=== PATIENT | male | born 1930 | race Caucasian/White ===

== ENCOUNTER 2017-09-03 07:30 | Inpatient (IN) | payer MEDICARE ==
[~2017-09-03] VITALS: Ht 180.3 cm; Wt 96.6 kg
[2017-09-12 09:56] VITALS: BP 131/81
[2017-09-12 10:16] LABS: BASOPHILS % (AUTO) 0.8 % (0.0-5.0); EOSINOPHILS % (AUTO) 3.7 % (0.0-8.0); HEMATOCRIT 40.2 % (42-54); LYMPHOCYTES % (AUTO) 17.8 % (21.0-51.0); MEAN CORPUSCULAR HEMOGLOBIN 29.6 pg (27.0-33.0); MEAN CORPUSCULAR HGB CONC 32.9 g/dL (32.0-36.0); MONOCYTES % (AUTO) 9.3 % (3.0-13.0); NEUTROPHILS % (AUTO) 68.4 % (40.0-77.0); PLATELET COUNT (AUTO) 213 K/uL (130-400); RED BLOOD CELL COUNT(AUTO) 4.47 MIL/uL (4.50-6.20); RED CELL DISTRIBUTION WIDTH 15.2 % (11.0-15.5); WHITE BLOOD COUNT (AUTO) 8.7 K/uL (4.8-10.8)
[2017-09-12 10:28] LABS: CREATININE 1.5 mg/dL (0.5-1.5); POTASSIUM 4.2 mmol/L (3.5-5.1)
[2017-09-12] MEDS ORDERED: FURO20TA4 PO (12:24)
[2017-09-12] MEDS ORDERED: CHOL200013 PO (12:24)
[2017-09-12] MEDS ORDERED: ATOR40TA71 PO (12:24)
[2017-09-12] MEDS ORDERED: ALBU2.5V2 IH (12:24)
[2017-09-12] MEDS ORDERED: METO50TA18 PO (12:24)
[2017-09-12] MEDS ORDERED: CYANOCOBALAMIN PO (12:24)
[2017-09-12] MEDS ORDERED: SPIR25TA6 PO (12:24)
[2017-09-12] MEDS ORDERED: PSYL3.4P5 PO (12:24)
[2017-09-12] MEDS ORDERED: MV-M1TAB39 PO (12:24)
[2017-09-12] MEDS ORDERED: PANT40TA25 PO (12:24)
[2017-09-12] MEDS ORDERED: BISA10SU8 RC (12:24)
[2017-09-12] MEDS ORDERED: MOM30 PO (12:24)
[2017-09-12] MEDS ORDERED: ENAL10TA PO (12:24)
[2017-09-12] MEDS ORDERED: TRAM50TA4 PO (12:24)
[2017-09-12] MEDS ORDERED: ARTIFICIAL TEAR OU (12:24)
[2017-09-12] MEDS ORDERED: OMEG-148 PO (12:24)
[2017-09-12] MEDS ORDERED: DIGO250T84 PO (12:24)
[2017-09-12] MEDS ORDERED: XALA2.5OS OU (12:24)
[2017-09-12] MEDS ORDERED: TRAZ-185 PO (12:24)
[2017-09-12] MEDS ORDERED: SERT25TA PO (12:24)
[2017-09-12] MEDS ORDERED: ONDA4TAB4 PO (12:24)
[2017-09-12] MEDS ORDERED: AEC81 PO (12:24)
[2017-09-16] VITALS (28 sets, daily range): BP systolic 97–129; BP diastolic 46–75
[2017-09-16] MEDS: CEFAZOLIN SODIUM 1 GM VIAL IVP SCH ×2 (05:00→08:00)
[2017-09-16] MEDS ORDERED: LACTATED RINGERS 1000ML 1,000 ML IV ONE (06:51)
[2017-09-16] MEDS ORDERED: DEXAMETHASONE SOD PHOSPHATE 10MG/ML 1ML VIAL ONE (07:04)
[2017-09-16] MEDS ORDERED: GLYCOPYRROLATE 0.2 MG/ML 5 ML VIAL ONE (07:04)
[2017-09-16] MEDS ORDERED: NEOSTIGMINE 5MG/5ML SYR IV ONE ×2 (07:04→08:40)
[2017-09-16] MEDS ORDERED: LIDOCAINE PF 2% 5ML ABBOJECT ONE (07:04)
[2017-09-16] MEDS ORDERED: MIDAZOLAM HCL 1 MG/ML 2ML VIAL ONE (07:05)
[2017-09-16] MEDS ORDERED: PROPOFOL 10 MG/ML 20ML VIAL IV ONE (07:05)
[2017-09-16] MEDS ORDERED: FENTANYL CITRATE PF 50 MCG/1 ML 2ML VIAL ONE ×2 (07:06→08:23)
[2017-09-16] MEDS ORDERED: KETAMINE HCL 100 MG/ML 5ML VIAL IJ ONE (07:29)
[2017-09-16] MEDS ORDERED: BUPIVACAINE/EPI/PF 0.25% 30ML VIAL IJ ONE (07:40)
[2017-09-16] MEDS ORDERED: THROMBIN-JMI 20000 UNIT KIT TP ONE (07:41)
[2017-09-16] MEDS ORDERED: BACITRACIN 50,000 UNIT VIAL ONE (07:41)
[2017-09-16] MEDS ORDERED: EPHEDRINE SULFATE 50 MG/ML AMPULE ONE (07:59)
[2017-09-16] MEDS ORDERED: PHENYLEPHRINE HCL 10 MG/ML 1ML VIAL IV ONE (08:09)
[2017-09-16] MEDS ORDERED: ROCURONIUM BROMIDE 10MG/1ML 5ML VL ONE (08:17)
[2017-09-16] MEDS ORDERED: SUCCINYLCHOLINE CHLORIDE 20 MG/ML 10 ML VIAL ONE ×2 (08:18)
[2017-09-16] MEDS ORDERED: ONDANSETRON HCL MDV 20ML 2 MG/ML VIAL ONE (08:18)
[2017-09-16] MEDS ORDERED: METOCLOPRAMIDE 10 MG/2 ML VIAL ONE (08:18)
[2017-09-16] MEDS ORDERED: LIDOCAINE HCL 4% LTA SOL 4 ML VIAL ONE (08:18)
[2017-09-16] MEDS ORDERED: ESMOLOL HCL 10 MG/ML 10 ML VIAL ONE ×2 (08:38→09:07)
[2017-09-16] MEDS ORDERED: ONDANSETRON 4 MG TABLET PO PRN ×2 (09:30→20:15)
[2017-09-16] MEDS ORDERED: ALBUTEROL SULFATE 0.083% 2.5 MG/3 ML INH IH PRN ×2 (09:30→20:15)
[2017-09-16] MEDS ORDERED: TRAMADOL HCL 50 MG TABLET PO PRN ×2 (09:30→20:15)
[2017-09-16] MEDS ORDERED: PSYLLIUM SEED 1 EACH PACKET PO PRN (09:30)
[2017-09-16] MEDS ORDERED: MORPHINE SULFATE 4 MG/1ML SYG IVP PRN (09:30)
[2017-09-16] MEDS ORDERED: BISACODYL 10 MG SUPP.RECT RC PRN ×2 (09:30→20:15)
[2017-09-16] MEDS ORDERED: MAGNESIUM HYDROXIDE 30 ML/UDCUP PO PRN ×2 (09:30→20:15)
[2017-09-16] MEDS ORDERED: TRAZODONE HCL 50 MG TAB PO PRN ×2 (09:30→20:15)
[2017-09-16] MEDS: LACTATED RINGERS 1000ML 1,000 ML IV SCH ×2 (12:51→22:48)
[2017-09-16] MEDS ORDERED: CEFAZOLIN 1GM / D5W 50ML 50 ML IV SCH (14:00)
[2017-09-16] MEDS ORDERED: CEFAZOLIN SODIUM 1 GM VIAL IVP SCH (14:00)
[2017-09-16] MEDS: DIGOXIN 250 MCG TABLET PO SCH (15:20)
[2017-09-16] MEDS: [UNRECOGNIZED DRUG - OTHER] PO SCH (21:00)
[2017-09-16] MEDS: ENALAPRIL MALEATE 10 MG TABLET PO SCH (21:00)
[2017-09-16] MEDS: FUROSEMIDE 20 MG TABLET PO SCH (21:40)
[2017-09-16] MEDS: ATORVASTATIN CALCIUM 40 MG TABLET PO SCH (21:40)
[2017-09-16] MEDS: ARTIFICAL TEARS SOL 15 ML OU SCH (21:40)
[2017-09-16] MEDS: METOPROLOL TARTRATE 50 MG TAB PO SCH (21:40)
[2017-09-17] MEDS: SPIRONOLACTONE 25 MG TAB PO SCH ×3 (00:10→20:57)
[2017-09-17] MEDS: CEFAZOLIN SODIUM 1 GM VIAL IVP SCH (00:10)
[2017-09-17 00:19] VITALS: BP 99/65
[2017-09-17 04:52] VITALS: BP 121/68
[2017-09-17 07:45] VITALS: BP 116/68
[2017-09-17] MEDS: **HM**Cholecalciferol (Vitamin D3) (Vitamin D3) 2,000 UNIT PO SCH (08:38)
[2017-09-17] MEDS: [UNRECOGNIZED DRUG - OTHER] PO SCH ×2 (08:39→20:58)
[2017-09-17] MEDS: LACTATED RINGERS 1000ML 1,000 ML IV SCH (08:39)
[2017-09-17] MEDS: ENALAPRIL MALEATE 10 MG TABLET PO SCH ×2 (08:39→21:00)
[2017-09-17] MEDS: FISH OIL 1000 MG/CAP PO SCH (10:39)
[2017-09-17] MEDS: SERTRALINE HCL 50 MG TABLET PO SCH (10:39)
[2017-09-17] MEDS: CYANOCOBALAMIN (VITAMIN B-12) 1,000 MCG TABLET PO SCH (10:39)
[2017-09-17] MEDS: ASPIRIN 81 MG EC TAB PO SCH (10:39)
[2017-09-17] MEDS: PANTOPRAZOLE SODIUM 40 MG TABLET.DR PO SCH (10:39)
[2017-09-17] MEDS: FUROSEMIDE 20 MG TABLET PO SCH ×2 (10:40→20:57)
[2017-09-17] MEDS: LATANOPROST 2.5 ML DROPS OU SCH (10:40)
[2017-09-17] MEDS: ARTIFICAL TEARS SOL 15 ML OU SCH ×2 (10:40→20:58)
[2017-09-17] MEDS: METOPROLOL TARTRATE 50 MG TAB PO SCH ×2 (10:40→20:57)
[2017-09-17 16:17] VITALS: BP 123/74
[2017-09-17] MEDS: DIGOXIN 250 MCG TABLET PO SCH (16:34)
[2017-09-17 20:00] VITALS: BP 117/76
[2017-09-17] MEDS: ATORVASTATIN CALCIUM 40 MG TABLET PO SCH (20:57)
[2017-09-18] VITALS: BP 121/57
[2017-09-18] MEDS: LACTATED RINGERS 1000ML 1,000 ML IV SCH ×2 (01:28→14:31)
[2017-09-18 04:00] VITALS: BP 133/65
[2017-09-18] MEDS: CEFAZOLIN SODIUM 1 GM VIAL IVP SCH (05:00)
[2017-09-18 07:55] VITALS: BP 122/74
[2017-09-18] MEDS: ENALAPRIL MALEATE 10 MG TABLET PO SCH (09:00)
[2017-09-18] MEDS: **HM**Cholecalciferol (Vitamin D3) (Vitamin D3) 2,000 UNIT PO SCH (09:00)
[2017-09-18] MEDS: [UNRECOGNIZED DRUG - OTHER] PO SCH (09:00)
[2017-09-18] MEDS: CYANOCOBALAMIN (VITAMIN B-12) 1,000 MCG TABLET PO SCH (09:26)
[2017-09-18] MEDS: FISH OIL 1000 MG/CAP PO SCH (09:26)
[2017-09-18] MEDS: SERTRALINE HCL 50 MG TABLET PO SCH (09:26)
[2017-09-18] MEDS: PANTOPRAZOLE SODIUM 40 MG TABLET.DR PO SCH (09:27)
[2017-09-18] MEDS: ASPIRIN 81 MG EC TAB PO SCH (09:27)
[2017-09-18] MEDS: FUROSEMIDE 20 MG TABLET PO SCH (09:27)
[2017-09-18] MEDS: SPIRONOLACTONE 25 MG TAB PO SCH (09:27)
[2017-09-18] MEDS: METOPROLOL TARTRATE 50 MG TAB PO SCH (09:27)
[2017-09-18] MEDS: ARTIFICAL TEARS SOL 15 ML OU SCH (09:28)
[2017-09-18] MEDS: LATANOPROST 2.5 ML DROPS OU SCH (09:29)
[2017-09-18 11:36] VITALS: BP 121/73
[2017-09-18 16:14] VITALS: BP 118/74
[2017-09-18] MEDS: DIGOXIN 250 MCG TABLET PO SCH (17:17)
== END 2017-09-18 20:05 | DRG 31 ==
LOC: EDSTATUS 09-12 09:45 → DAHIP 09-16 05:56 → 4AH 09-16 11:43
PROVIDERS: ADMIT Neurological Surgery; ATTEND Neurological Surgery
PROC: 00163J6 Bypass Cerebral Ventricle to Peritoneal Cavity with Synthetic Substitute, Percutaneous Approach (ICD-10-PCS; principal; 2017-09-16 07:35)
DX: G91.2 (Idiopathic) normal pressure hydrocephalus (principal); J18.9 Pneumonia, unspecified organism; G93.89 Other specified disorders of brain; I69.351 Hemiplegia and hemiparesis following cerebral infarction affecting right dominant side; I48.91 Unspecified atrial fibrillation; I50.9 Heart failure, unspecified; J44.0 Chronic obstructive pulmonary disease with (acute) lower respiratory infection; S42.309A Unspecified fracture of shaft of humerus, unspecified arm, initial encounter for closed fracture; F03.90 Unspecified dementia, unspecified severity, without behavioral disturbance, psychotic disturbance, mood disturbance, and anxiety; G47.30 Sleep apnea, unspecified; R32 Unspecified urinary incontinence; R26.9 Unspecified abnormalities of gait and mobility; R62.7 Adult failure to thrive; Z88.1 Allergy status to other antibiotic agents
CPT/HCPCS: 36415; 80048; 85025; 94664; A4218; A4300; A4344; J0330; J0690; J1100; J2001; J2250; J2370; J2704; J2710; J2765; J3010; J3490; J7120

== ENCOUNTER → 2017-10-27 | Outpatient (CLI) | payer MEDICARE ==
[~2017-10-27] MED LIST: AEC81 PO; ALBU2.5V2 IH; ARTIFICIAL TEAR OU; ATOR40TA71 PO; BISA10SU8 RC; CHOL200013 PO; CYANOCOBALAMIN PO; DIGO250T84 PO; ENAL10TA PO; FURO20TA4 PO; METO50TA18 PO; MOM30 PO; MV-M1TAB39 PO; OMEG-148 PO; ONDA4TAB4 PO; PANT40TA25 PO; PSYL3.4P5 PO; SERT25TA PO; SPIR25TA6 PO; TRAM50TA4 PO; TRAZ-185 PO; XALA2.5OS OU
== END | disposition home or self-care (01) ==
LOC: RAH 07:51
PROVIDERS: ATTEND Neurological Surgery
DX: G91.2 (Idiopathic) normal pressure hydrocephalus (principal)
CPT/HCPCS: 70450

== ENCOUNTER → 2017-11-24 | Outpatient (CLI) | payer MEDICARE | END | disposition home or self-care (01) | LOC: RAH 09:32 | PROVIDERS: ATTEND Neurological Surgery | DX: G91.9 Hydrocephalus, unspecified (principal) | CPT/HCPCS: 70450 ==